=== PATIENT | male | born 1995 | race African-American/Black ===

== ENCOUNTER 2020-04-09 22:36 | Emergency (ER) | payer SELFPAY ==
[~2020-04-09] VITALS: Ht 165.1 cm; Wt 84.0 kg
[2020-04-09] MEDS ORDERED: CEPHALEXIN 250MG CAPSULE PO ONE (23:15)
[2020-04-09] MEDS ORDERED: IBUPROFEN 600MG TABLET PO ONE (23:15)
[2020-04-09 23:34] VITALS: BP 131/74
== END 2020-04-09 23:40 | disposition home or self-care (01) ==
LOC: ER 22:36
DX: Z48.02 Encounter for removal of sutures (principal)
CPT/HCPCS: 99283